=== PATIENT | male | born 1945 | race Caucasian/White ===

== ENCOUNTER 2017-08-11 10:13 | Day surgery (SDC) | payer MEDICARE ==
[2017-08-11] MEDS ORDERED: Sodium Chloride 0.9% 20 ML ONE (10:26)
[2017-08-11] MEDS ORDERED: Acetaminophen 500 MG TAB PO SCH (10:45)
[2017-08-11] MEDS ORDERED: diphenhydrAMINE 25 MG CAP PO SCH (10:45)
[2017-08-11 16:55] VITALS: TEMP 97.9
[2017-08-11 17:33] LABS: Anisocytosis SLIGHT = 6-15 cells (100X) (0-5/hpf); Hematocrit 23.3 % (42.0-52.0); Mean Platelet Volume 6.9 fL (7.4-10.4); Neutrophil 16 % (42-75); Ovalocytes SLIGHT = 2-5 cells (100X) (0-1/hpf); Polychromasia SLIGHT = 2-3 cells (100X) (0-2/hpf); Red Blood Cell (RBC) Count 2.19 mill/uL (4.70-6.10); White Blood Cell (WBC) Count 4.3 thou/uL (4.8-10.8)
[2017-08-11 17:46] VITALS: BP 128/64
== END 2017-08-11 17:05 | disposition home or self-care (01) ==
LOC: ONC/OP 10:13
PROVIDERS: ATTEND Nurse Practitioner Acute Care
PROC: 30233N1 Transfusion of Nonautologous Red Blood Cells into Peripheral Vein, Percutaneous Approach (ICD-10-PCS; principal; 2017-08-11)
DX: D64.9 Anemia, unspecified (principal); D69.6 Thrombocytopenia, unspecified; Z88.1 Allergy status to other antibiotic agents; Z88.8 Allergy status to other drugs, medicaments and biological substances
CPT/HCPCS: 36430; 85025; 86850; 86900; 86901; A4216; J1642; P9016

== ENCOUNTER 2017-09-22 12:24 | Day surgery (SDC) | payer MEDICARE ==
[2017-09-22] MEDS ORDERED: Sodium Chloride 0.9% 20 ML ONE (13:18)
[2017-09-22] MEDS ORDERED: Acetaminophen 500 MG TAB PO SCH (13:30)
[2017-09-22] MEDS ORDERED: diphenhydrAMINE 25 MG CAP PO SCH (13:30)
[2017-09-22 18:35] VITALS: BP 132/63; TEMP 97.9
[2017-09-22 19:13] LABS: Anisocytosis SLIGHT = 6-15 cells (100X) (0-5/hpf); Band 1 % (5-11); Hemoglobin 7.7 g/dL (14.0-18.0); Lymphocytes 72 % (21-51); MDiff Complete? YES; Mean Corpuscular HGB CONC 34.6 g/dL (32.0-36.0); Mean Platelet Volume 6.6 fL (7.4-10.4); Monocytes 6 % (0-10); Neutrophil 21 % (42-75); Ovalocytes SLIGHT = 2-5 cells (100X) (0-1/hpf); PLT Morphology Comment Appears Adequate; Platelet Count 227 thou/uL (130-400); RBC Distribution Width 24.1 % (11.5-14.5); Red Blood Cell (RBC) Count 2.14 mill/uL (4.70-6.10); White Blood Cell (WBC) Count 4.5 thou/uL (4.8-10.8)
== END 2017-09-22 18:38 | disposition home or self-care (01) ==
LOC: ONC/OP 12:24
PROVIDERS: ATTEND Internal Medicine Hematology & Oncology
PROC: 30233N1 Transfusion of Nonautologous Red Blood Cells into Peripheral Vein, Percutaneous Approach (ICD-10-PCS; principal; 2017-09-22)
DX: D64.9 Anemia, unspecified (principal); D69.59 Other secondary thrombocytopenia; Z88.1 Allergy status to other antibiotic agents; Z88.8 Allergy status to other drugs, medicaments and biological substances; Z91.013 Allergy to seafood
CPT/HCPCS: 36430; 80053; 82248; 82728; 83615; 84100; 84550; 85025; 86850; 86900; 86901; A4216; J1642; P9016

== ENCOUNTER 2017-10-06 09:55 | Day surgery (SDC) | payer MEDICARE ==
[2017-10-06] MEDS ORDERED: Acetaminophen 500 MG TAB PO SCH (10:15)
[2017-10-06] MEDS ORDERED: diphenhydrAMINE 25 MG CAP PO SCH (10:15)
[2017-10-06] MEDS ORDERED: Sodium Chloride 0.9% 30 ML ONE (10:17)
[2017-10-06 15:36] VITALS: BP 122/58; TEMP 98.1
[2017-10-06 16:48] LABS: Anisocytosis MODERATE=16-30 cells (100X) (0-5/hpf); Burr Cells SLIGHT = 2-5 cells (100X) (0-1/hpf); Eosinophils 1 % (0-10); Lymphocytes 80 % (21-51); MDiff Complete? YES; Macrocytosis SLIGHT = 6-15 cells (100X) (0-5/hpf); Mean Corpuscular HGB CONC 33.3 g/dL (32.0-36.0); Mean Corpuscular Hemoglobin 34.3 pg (27.0-31.0); Mean Platelet Volume 6.9 fL (7.4-10.4); Monocytes 11 % (0-10); Neutrophil 8 % (42-75); PLT Morphology Comment Appears Adequate; Platelet Count 259 thou/uL (130-400); Polychromasia SLIGHT = 2-3 cells (100X) (0-2/hpf); Red Blood Cell (RBC) Count 2.32 mill/uL (4.70-6.10); White Blood Cell (WBC) Count 5.1 thou/uL (4.8-10.8)
== END 2017-10-06 15:47 | disposition home or self-care (01) ==
LOC: ONC/OP 09:55
PROVIDERS: ATTEND Internal Medicine Hematology & Oncology
PROC: 30233N1 Transfusion of Nonautologous Red Blood Cells into Peripheral Vein, Percutaneous Approach (ICD-10-PCS; principal; 2017-10-06)
DX: D64.9 Anemia, unspecified (principal); D69.6 Thrombocytopenia, unspecified; Z88.1 Allergy status to other antibiotic agents; Z88.8 Allergy status to other drugs, medicaments and biological substances
CPT/HCPCS: 36430; 85025; 86850; 86900; 86901; A4216; J1642; P9016

== ENCOUNTER 2017-10-20 15:17 | Day surgery (SDC) | payer MEDICARE ==
[2017-10-20] MEDS ORDERED: Sodium Chloride 0.9% 20 ML ONE (15:23)
[2017-10-20] MEDS ORDERED: Acetaminophen 500 MG TAB PO SCH (15:45)
[2017-10-20] MEDS ORDERED: diphenhydrAMINE 25 MG CAP PO SCH (15:45)
[2017-10-20 17:33] VITALS: TEMP 97.9
[2017-10-20 19:23] VITALS: BP 137/65
[2017-10-20 19:57] LABS: Anisocytosis SLIGHT = 6-15 cells (100X) (0-5/hpf); Hemoglobin 7.2 g/dL (14.0-18.0); Lymphocytes 92 % (21-51); MDiff Complete? YES; Mean Corpuscular HGB CONC 34.8 g/dL (32.0-36.0); Mean Platelet Volume 6.9 fL (7.4-10.4); Monocytes 1 % (0-10); Neutrophil 7 % (42-75); Ovalocytes SLIGHT = 2-5 cells (100X) (0-1/hpf); PLT Morphology Comment Appears Adequate; Platelet Count 228 thou/uL (130-400); RBC Distribution Width 22.9 % (11.5-14.5); White Blood Cell (WBC) Count 4.7 thou/uL (4.8-10.8)
== END 2017-10-20 19:23 | disposition home or self-care (01) ==
LOC: ONC/OP 15:17
PROVIDERS: ATTEND Internal Medicine Hematology & Oncology
PROC: 30233N1 Transfusion of Nonautologous Red Blood Cells into Peripheral Vein, Percutaneous Approach (ICD-10-PCS; principal; 2017-10-20)
DX: D64.9 Anemia, unspecified (principal); D69.6 Thrombocytopenia, unspecified; Z88.1 Allergy status to other antibiotic agents
CPT/HCPCS: 36430; 80053; 82248; 83615; 84100; 84550; 85025; 86850; 86900; 86901; A4216; J1642; P9016

== ENCOUNTER 2017-11-03 09:56 | Day surgery (SDC) | payer MEDICARE ==
[2017-11-03] MEDS ORDERED: Sodium Chloride 0.9% 30 ML ONE (10:14)
[2017-11-03] MEDS ORDERED: diphenhydrAMINE 25 MG CAP PO SCH (10:15)
[2017-11-03] MEDS ORDERED: Acetaminophen 500 MG TAB PO SCH (10:15)
[2017-11-03 16:01] VITALS: BP 134/61; TEMP 98
[2017-11-03 16:56] LABS: Anisocytosis SLIGHT = 6-15 cells (100X) (0-5/hpf); Hemoglobin 8.5 g/dL (14.0-18.0); Lymphocytes 81 % (21-51); MDiff Complete? YES; Macrocytosis SLIGHT = 6-15 cells (100X) (0-5/hpf); Mean Corpuscular HGB CONC 34.2 g/dL (32.0-36.0); Mean Corpuscular Hemoglobin 35.7 pg (27.0-31.0); Mean Platelet Volume 7.1 fL (7.4-10.4); Monocytes 4 % (0-10); Neutrophil 15 % (42-75); PLT Morphology Comment Appears Adequate; Platelet Count 246 thou/uL (130-400); RBC Distribution Width 22.4 % (11.5-14.5); Red Blood Cell (RBC) Count 2.37 mill/uL (4.70-6.10); White Blood Cell (WBC) Count 4.9 thou/uL (4.8-10.8)
== END 2017-11-03 16:02 | disposition home or self-care (01) ==
LOC: ONC/OP 09:56
PROVIDERS: ATTEND Internal Medicine Hematology & Oncology
PROC: 30233N1 Transfusion of Nonautologous Red Blood Cells into Peripheral Vein, Percutaneous Approach (ICD-10-PCS; principal; 2017-11-03)
DX: D64.9 Anemia, unspecified (principal); D69.59 Other secondary thrombocytopenia; E89.0 Postprocedural hypothyroidism; Z79.82 Long term (current) use of aspirin; Z79.1 Long term (current) use of non-steroidal anti-inflammatories (NSAID); Z79.52 Long term (current) use of systemic steroids; Z79.899 Other long term (current) drug therapy; Z88.1 Allergy status to other antibiotic agents; Z88.8 Allergy status to other drugs, medicaments and biological substances; Z91.013 Allergy to seafood; Z98.890 Other specified postprocedural states; Z87.891 Personal history of nicotine dependence; Z85.850 Personal history of malignant neoplasm of thyroid
CPT/HCPCS: 36430; 85025; 86850; 86900; 86901; A4216; J1642; P9016

== ENCOUNTER 2017-11-24 09:47 | Day surgery (SDC) | payer MEDICARE ==
[2017-11-24] MEDS ORDERED: Sodium Chloride 0.9% 30 ML ONE (10:06)
[2017-11-24] MEDS ORDERED: Acetaminophen 500 MG TAB PO SCH (10:15)
[2017-11-24] MEDS ORDERED: diphenhydrAMINE 25 MG CAP PO SCH (10:15)
[2017-11-24 16:01] VITALS: BP 122/60; TEMP 97.8
[2017-11-24 16:24] LABS: Hemoglobin 8.2 g/dL (14.0-18.0); Mean Corpuscular HGB CONC 34.3 g/dL (32.0-36.0); Mean Corpuscular Hemoglobin 34.6 pg (27.0-31.0); Mean Platelet Volume 6.7 fL (7.4-10.4); Platelet Count 242 thou/uL (130-400); RBC Distribution Width 22.4 % (11.5-14.5); Red Blood Cell (RBC) Count 2.38 mill/uL (4.70-6.10); White Blood Cell (WBC) Count 5.1 thou/uL (4.8-10.8)
[2017-11-24 17:08] LABS: Anisocytosis MODERATE=16-30 cells (100X) (0-5/hpf); Band 1 % (5-11); Elliptocytes SLIGHT = 2-5 cells (100X) (0-1/hpf); Eosinophils 3 % (0-10); Lymphocytes 77 % (21-51); MDiff Complete? YES; Macrocytosis SLIGHT = 6-15 cells (100X) (0-5/hpf); Monocytes 4 % (0-10); Neutrophil 8 % (42-75); Ovalocytes SLIGHT = 2-5 cells (100X) (0-1/hpf); PLT Morphology Comment Appears Adequate; Polychromasia SLIGHT = 2-3 cells (100X) (0-2/hpf); Reactive Lymphocytes 6 % (0-10)
== END 2017-11-24 16:13 | disposition home or self-care (01) ==
LOC: ONC/OP 09:47
PROVIDERS: ATTEND Internal Medicine Medical Oncology
PROC: 30233N1 Transfusion of Nonautologous Red Blood Cells into Peripheral Vein, Percutaneous Approach (ICD-10-PCS; principal; 2017-11-24)
DX: D46.9 Myelodysplastic syndrome, unspecified (principal); D63.8 Anemia in other chronic diseases classified elsewhere; D69.6 Thrombocytopenia, unspecified; Z88.1 Allergy status to other antibiotic agents; Z88.8 Allergy status to other drugs, medicaments and biological substances
CPT/HCPCS: 36430; 85025; 86850; 86900; 86901; A4216; J1642; P9016

== ENCOUNTER 2017-12-15 10:17 | Day surgery (SDC) | payer MEDICARE ==
[2017-12-15] MEDS ORDERED: Sodium Chloride 0.9% 30 ML ONE (10:23)
[2017-12-15] MEDS ORDERED: diphenhydrAMINE 25 MG CAP PO SCH (11:00)
[2017-12-15] MEDS ORDERED: Acetaminophen 500 MG TAB PO SCH (11:00)
[2017-12-15 17:11] VITALS: BP 117/58; TEMP 97.7
[2017-12-15 18:35] LABS: Hemoglobin 7.7 g/dL (14.0-18.0); Mean Corpuscular HGB CONC 34.8 g/dL (32.0-36.0); Mean Corpuscular Hemoglobin 34.2 pg (27.0-31.0); Mean Corpuscular Volume 98.4 fl (80.0-94.0); Mean Platelet Volume 6.6 fL (7.4-10.4); Platelet Count 292 thou/uL (130-400); RBC Distribution Width 20.7 % (11.5-14.5); Red Blood Cell (RBC) Count 2.26 mill/uL (4.70-6.10); White Blood Cell (WBC) Count 4.9 thou/uL (4.8-10.8)
[2017-12-15 18:36] LABS: Anisocytosis SLIGHT = 6-15 cells (100X) (0-5/hpf); Band 2 % (5-11); Lymphocytes 93 % (21-51); MDiff Complete? YES; Neutrophil 5 % (42-75); Ovalocytes SLIGHT = 2-5 cells (100X) (0-1/hpf); PLT Morphology Comment Appears Adequate
== END 2017-12-15 17:12 | disposition home or self-care (01) ==
LOC: ONC/OP 10:17
PROVIDERS: ATTEND Internal Medicine Hematology & Oncology
PROC: 30233N1 Transfusion of Nonautologous Red Blood Cells into Peripheral Vein, Percutaneous Approach (ICD-10-PCS; principal; 2017-12-15)
DX: D64.9 Anemia, unspecified (principal); D69.6 Thrombocytopenia, unspecified; Z88.1 Allergy status to other antibiotic agents; Z88.8 Allergy status to other drugs, medicaments and biological substances
CPT/HCPCS: 36430; 85025; 86850; 86900; 86901; A4216; J1642; P9016

== ENCOUNTER 2017-12-29 09:29 | Day surgery (SDC) | payer MEDICARE ==
[2017-12-29] MEDS ORDERED: Sodium Chloride 0.9% 40 ML ONE (09:45)
[2017-12-29] MEDS ORDERED: Acetaminophen 500 MG TAB PO SCH (09:45)
[2017-12-29] MEDS ORDERED: diphenhydrAMINE 25 MG CAP PO SCH (09:45)
[2017-12-29 16:38] VITALS: BP 112/54; TEMP 97.9
[2017-12-29 16:59] LABS: Anisocytosis SLIGHT = 6-15 cells (100X) (0-5/hpf); Eosinophils 1 % (0-10); Hemoglobin 7.9 g/dL (14.0-18.0); Lymphocytes 91 % (21-51); MDiff Complete? YES; Mean Corpuscular HGB CONC 33.4 g/dL (32.0-36.0); Mean Corpuscular Hemoglobin 33.9 pg (27.0-31.0); Mean Platelet Volume 7.2 fL (7.4-10.4); Monocytes 3 % (0-10); Neutrophil 5 % (42-75); Ovalocytes SLIGHT = 2-5 cells (100X) (0-1/hpf); PLT Morphology Comment Appears Adequate; Platelet Count 258 thou/uL (130-400); RBC Distribution Width 22.4 % (11.5-14.5); Red Blood Cell (RBC) Count 2.32 mill/uL (4.70-6.10); White Blood Cell (WBC) Count 4.5 thou/uL (4.8-10.8)
== END 2017-12-29 16:38 | disposition home or self-care (01) ==
LOC: ONC/OP 09:29
PROVIDERS: ATTEND Internal Medicine Hematology & Oncology
PROC: 30233N1 Transfusion of Nonautologous Red Blood Cells into Peripheral Vein, Percutaneous Approach (ICD-10-PCS; principal; 2017-12-29)
DX: D64.9 Anemia, unspecified (principal); D69.6 Thrombocytopenia, unspecified; Z88.1 Allergy status to other antibiotic agents; Z88.8 Allergy status to other drugs, medicaments and biological substances
CPT/HCPCS: 36430; 85025; 86850; 86900; 86901; A4216; J1642; P9016

== ENCOUNTER 2018-01-12 09:44 | Day surgery (SDC) | payer MEDICARE ==
[2018-01-12] MEDS ORDERED: Sodium Chloride 0.9% 40 ML ONE (10:59)
[2018-01-12] MEDS ORDERED: diphenhydrAMINE 25 MG CAP PO SCH (11:00)
[2018-01-12] MEDS ORDERED: Acetaminophen 500 MG TAB PO SCH (11:00)
[2018-01-12 15:17] LABS: Hemoglobin 7.4 g/dL (14.0-18.0)
[2018-01-12 17:55] VITALS: TEMP 98.5
[2018-01-12 18:53] VITALS: BP 152/68
== END 2018-01-12 19:07 | disposition home or self-care (01) ==
LOC: ONC/OP 09:44
PROVIDERS: ATTEND Internal Medicine Hematology & Oncology
PROC: 30233N1 Transfusion of Nonautologous Red Blood Cells into Peripheral Vein, Percutaneous Approach (ICD-10-PCS; principal; 2018-01-12)
DX: D46.9 Myelodysplastic syndrome, unspecified (principal); D63.0 Anemia in neoplastic disease; D69.6 Thrombocytopenia, unspecified; Z88.1 Allergy status to other antibiotic agents; Z88.8 Allergy status to other drugs, medicaments and biological substances
CPT/HCPCS: 36430; 85014; 85018; 86850; 86900; 86901; A4216; J1642; P9016

== ENCOUNTER 2018-01-26 10:33 | Day surgery (SDC) | payer MEDICARE ==
[2018-01-26] MEDS ORDERED: Sodium Chloride 0.9% 40 ML ONE (10:47)
[2018-01-26] MEDS ORDERED: diphenhydrAMINE 25 MG CAP PO SCH (11:45)
[2018-01-26] MEDS ORDERED: Acetaminophen 500 MG TAB PO SCH (11:45)
[2018-01-26 14:59] LABS: Hemoglobin 7.5 g/dL (14.0-18.0)
[2018-01-26 17:33] VITALS: BP 151/67; TEMP 97.9
== END 2018-01-26 17:34 | disposition home or self-care (01) ==
LOC: ONC/OP 10:33
PROVIDERS: ATTEND Internal Medicine Hematology & Oncology
DX: D64.9 Anemia, unspecified (principal); D69.6 Thrombocytopenia, unspecified
CPT/HCPCS: 36430; 85014; 85018; 86850; 86900; 86901; A4216; J1642; P9016

== ENCOUNTER 2018-02-05 11:02 | Day surgery (SDC) | payer MEDICARE ==
[2018-02-05] MEDS ORDERED: Acetaminophen 500 MG TAB PO SCH (11:30)
[2018-02-05] MEDS ORDERED: diphenhydrAMINE 25 MG CAP PO SCH (11:30)
[2018-02-05] MEDS ORDERED: Sodium Chloride 0.9% 30 ML ONE (11:44)
[2018-02-05 16:59] VITALS: BP 118/58; TEMP 97.7
== END 2018-02-05 17:13 | disposition home or self-care (01) ==
LOC: ONC/OP 11:02
PROVIDERS: ATTEND Internal Medicine Hematology & Oncology
PROC: 30233N1 Transfusion of Nonautologous Red Blood Cells into Peripheral Vein, Percutaneous Approach (ICD-10-PCS; principal; 2018-02-05)
DX: D64.9 Anemia, unspecified (principal); Z88.1 Allergy status to other antibiotic agents; Z88.8 Allergy status to other drugs, medicaments and biological substances; Z91.013 Allergy to seafood; Z79.82 Long term (current) use of aspirin; Z79.899 Other long term (current) drug therapy
CPT/HCPCS: 36430; 85014; 85018; 86850; 86900; 86901; A4216; J1642; P9016

== ENCOUNTER 2018-02-16 09:49 | Day surgery (SDC) | payer MEDICARE ==
[2018-02-16] MEDS ORDERED: Sodium Chloride 0.9% 40 ML ONE (10:11)
[2018-02-16] MEDS ORDERED: Acetaminophen 500 MG TAB PO SCH (10:15)
[2018-02-16] MEDS ORDERED: diphenhydrAMINE 25 MG CAP PO SCH (10:15)
[2018-02-16 13:50] LABS: Hemoglobin 7.3 g/dL (14.0-18.0); Platelet Count 192 thou/uL (130-400)
[2018-02-16 18:59] VITALS: BP 124/58; TEMP 98.1
== END 2018-02-16 16:40 | disposition home or self-care (01) ==
LOC: ONC/OP 09:49
PROVIDERS: ATTEND Internal Medicine Hematology & Oncology
DX: D64.9 Anemia, unspecified (principal); D69.6 Thrombocytopenia, unspecified
CPT/HCPCS: 36430; 85014; 85018; 85049; 86850; 86900; 86901; A4216; J1642; P9016

== ENCOUNTER 2018-03-09 09:35 | Day surgery (SDC) | payer MEDICARE ==
[2018-03-09] MEDS ORDERED: Acetaminophen 500 MG TAB PO SCH (10:00)
[2018-03-09] MEDS ORDERED: diphenhydrAMINE 25 MG CAP PO SCH (10:00)
[2018-03-09] MEDS ORDERED: Sodium Chloride 0.9% 40 ML ONE (10:20)
[2018-03-09 13:32] LABS: Hemoglobin 7.7 g/dL (14.0-18.0)
[2018-03-09 15:53] VITALS: BP 111/55; TEMP 97.9
== END 2018-03-09 16:04 | disposition home or self-care (01) ==
LOC: ONC/OP 09:35
PROVIDERS: ATTEND Internal Medicine Hematology & Oncology
DX: D64.9 Anemia, unspecified (principal); D69.6 Thrombocytopenia, unspecified; Z88.1 Allergy status to other antibiotic agents; Z88.8 Allergy status to other drugs, medicaments and biological substances
CPT/HCPCS: 36430; 85014; 85018; 86850; 86900; 86901; A4216; J1642; P9016

== ENCOUNTER 2018-03-16 09:32 | Day surgery (SDC) | payer MEDICARE ==
[2018-03-16] MEDS ORDERED: Acetaminophen 500 MG TAB PO SCH (09:45)
[2018-03-16] MEDS ORDERED: diphenhydrAMINE 25 MG CAP PO SCH (09:45)
[2018-03-16 14:09] LABS: Hemoglobin 7.4 g/dL (14.0-18.0); Mean Corpuscular HGB CONC 33.9 g/dL (32.0-36.0); Mean Corpuscular Hemoglobin 32.8 pg (27.0-31.0); Mean Corpuscular Volume 96.8 fL (78.0-98.0); Mean Platelet Volume 6.8 fL (7.4-10.4); Platelet Count 227 thou/uL (130-400); RBC Distribution Width 21.7 % (11.5-14.5); Red Blood Cell (RBC) Count 2.25 mill/uL (4.70-6.10); White Blood Cell (WBC) Count 3.7 thou/uL (4.8-10.8)
[2018-03-16 14:31] LABS: Anisocytosis MODERATE=16-30 cells (100X) (0-5/hpf); Band 1 % (5-11); Burr Cells SLIGHT = 2-5 cells (100X) (0-1/hpf); Eosinophils 3 % (0-10); Lymphocytes 74 % (21-51); MDiff Complete? YES; Monocytes 3 % (0-10); Neutrophil 14 % (42-75); Ovalocytes SLIGHT = 2-5 cells (100X) (0-1/hpf); PLT Morphology Comment Appears Adequate; Polychromasia SLIGHT = 2-3 cells (100X) (0-2/hpf); Reactive Lymphocytes 5 % (0-10); Schistocytes SLIGHT = 2-5 cells (100X) (0-1/hpf)
[2018-03-16 19:00] VITALS: BP 117/56; TEMP 98.3
== END 2018-03-16 19:00 | disposition home or self-care (01) ==
LOC: ONC/OP 09:32
PROVIDERS: ATTEND Internal Medicine Medical Oncology
DX: D64.9 Anemia, unspecified (principal); D69.6 Thrombocytopenia, unspecified; Z88.1 Allergy status to other antibiotic agents; Z88.8 Allergy status to other drugs, medicaments and biological substances
CPT/HCPCS: 36430; 82728; 85025; 86850; 86900; 86901; P9016

== ENCOUNTER → 2018-04-06 | Day surgery (SDC) | payer MEDICARE ==
[~2018-04-06] MED LIST: Acetaminophen 500 MG TAB PO SCH; Sodium Chloride 0.9% 20 ML ONE; diphenhydrAMINE 25 MG CAP PO SCH
[2018-04-06 13:11] LABS: Hemoglobin 7.2 g/dL (14.0-18.0)
[2018-04-06 16:15] VITALS: BP 139/65; TEMP 98.5
== END ==
LOC: ONC/OP 09:04
PROVIDERS: ATTEND Internal Medicine Hematology & Oncology
DX: D64.9 Anemia, unspecified (principal); D69.6 Thrombocytopenia, unspecified; Z88.0 Allergy status to penicillin; Z88.8 Allergy status to other drugs, medicaments and biological substances
CPT/HCPCS: 36430; 36591; 85014; 85018; 86850; 86900; 86901; A4216; J1642; P9016

== ENCOUNTER 2018-05-04 09:24 | Day surgery (SDC) | payer MEDICARE ==
[2018-05-04] MEDS ORDERED: Sodium Chloride 0.9% 20 ML ONE (09:35)
[2018-05-04] MEDS ORDERED: diphenhydrAMINE 25 MG CAP PO SCH (09:45)
[2018-05-04] MEDS ORDERED: Acetaminophen 500 MG TAB PO SCH (09:45)
[2018-05-04 13:30] LABS: Hemoglobin 7.8 g/dL (14.0-18.0)
[2018-05-04 15:29] VITALS: BP 133/61; TEMP 97.8
== END 2018-05-04 15:31 | disposition home or self-care (01) ==
LOC: ONC/OP 09:24
PROVIDERS: ATTEND Internal Medicine Hematology & Oncology
PROC: 30233N1 Transfusion of Nonautologous Red Blood Cells into Peripheral Vein, Percutaneous Approach (ICD-10-PCS; principal; 2018-05-04)
DX: D64.9 Anemia, unspecified (principal); D69.6 Thrombocytopenia, unspecified; Z79.82 Long term (current) use of aspirin; Z79.899 Other long term (current) drug therapy; Z88.1 Allergy status to other antibiotic agents; Z88.8 Allergy status to other drugs, medicaments and biological substances; Z91.013 Allergy to seafood
CPT/HCPCS: 36430; 36591; 85014; 85018; 86850; 86900; 86901; A4216; J1642; P9016

== ENCOUNTER 2018-06-01 10:00 | Day surgery (SDC) | payer MEDICARE ==
[2018-06-01] MEDS ORDERED: diphenhydrAMINE 25 MG CAP PO SCH (10:15)
[2018-06-01] MEDS ORDERED: Acetaminophen 500 MG TAB PO SCH (10:15)
[2018-06-01 13:39] LABS: Hemoglobin 6.8 g/dL (14.0-18.0)
[2018-06-01 15:54] VITALS: BP 115/88; TEMP 98
== END 2018-06-01 15:56 | disposition home or self-care (01) ==
LOC: ONC/OP 10:00
PROVIDERS: ATTEND Internal Medicine Medical Oncology
PROC: 30233N1 Transfusion of Nonautologous Red Blood Cells into Peripheral Vein, Percutaneous Approach (ICD-10-PCS; principal; 2018-06-01)
DX: D64.9 Anemia, unspecified (principal); D69.6 Thrombocytopenia, unspecified; Z79.82 Long term (current) use of aspirin; Z79.899 Other long term (current) drug therapy; Z88.1 Allergy status to other antibiotic agents; Z88.8 Allergy status to other drugs, medicaments and biological substances; Z91.013 Allergy to seafood
CPT/HCPCS: 36430; 85014; 85018; 86850; 86900; 86901; P9016

== ENCOUNTER 2018-06-29 09:46 | Day surgery (SDC) | payer MEDICARE ==
[2018-06-29] MEDS ORDERED: Acetaminophen 500 MG TAB PO SCH (10:00)
[2018-06-29] MEDS ORDERED: diphenhydrAMINE 25 MG CAP PO SCH (10:00)
[2018-06-29] MEDS ORDERED: Sodium Chloride 0.9% 20 ML ONE (10:01)
[2018-06-29 13:50] VITALS: TEMP 98.1
[2018-06-29 13:58] LABS: Hemoglobin 6.9 g/dL (14.0-18.0)
[2018-06-29 16:34] VITALS: BP 113/57
== END 2018-06-29 16:34 | disposition home or self-care (01) ==
LOC: ONC/OP 09:46
PROVIDERS: ATTEND Internal Medicine Hematology & Oncology
PROC: 30233N1 Transfusion of Nonautologous Red Blood Cells into Peripheral Vein, Percutaneous Approach (ICD-10-PCS; principal; 2018-06-29)
DX: D64.9 Anemia, unspecified (principal); D69.6 Thrombocytopenia, unspecified; Z79.82 Long term (current) use of aspirin; Z79.899 Other long term (current) drug therapy; Z88.1 Allergy status to other antibiotic agents; Z91.013 Allergy to seafood
CPT/HCPCS: 36430; 85014; 85018; 86850; 86900; 86901; J1642; P9016

== ENCOUNTER 2018-08-03 09:18 | Day surgery (SDC) | payer MEDICARE ==
[2018-08-03] MEDS ORDERED: Sodium Chloride 0.9% 20 ML ONE (09:54)
[2018-08-03] MEDS ORDERED: diphenhydrAMINE 25 MG CAP PO SCH (10:15)
[2018-08-03] MEDS ORDERED: Acetaminophen 500 MG TAB PO SCH (10:15)
[2018-08-03 13:28] LABS: Hemoglobin 7.3 g/dL (14.0-18.0)
[2018-08-03 16:18] VITALS: BP 146/63; TEMP 97.7
== END 2018-08-03 16:30 | disposition home or self-care (01) ==
LOC: ONC/OP 09:18
PROVIDERS: ATTEND Internal Medicine Hematology & Oncology
PROC: 30233N1 Transfusion of Nonautologous Red Blood Cells into Peripheral Vein, Percutaneous Approach (ICD-10-PCS; principal; 2018-08-03)
DX: D64.9 Anemia, unspecified (principal); D69.6 Thrombocytopenia, unspecified; Z79.82 Long term (current) use of aspirin; Z79.899 Other long term (current) drug therapy; Z88.1 Allergy status to other antibiotic agents; Z88.8 Allergy status to other drugs, medicaments and biological substances; Z91.013 Allergy to seafood
CPT/HCPCS: 36430; 85014; 85018; 86850; 86900; 86901; J1642; P9016

== ENCOUNTER 2018-10-26 09:56 | Day surgery (SDC) | payer MEDICARE ==
[2018-10-26] MEDS ORDERED: Acetaminophen 500 MG TAB PO SCH (10:30)
[2018-10-26] MEDS ORDERED: diphenhydrAMINE 25 MG CAP PO SCH (10:30)
[2018-10-26] MEDS ORDERED: Sodium Chloride 0.9% 40 ML ONE (10:51)
[2018-10-26 14:13] LABS: Hemoglobin 7.1 g/dL (14.0-18.0)
[2018-10-26 16:44] VITALS: BP 125/58; TEMP 97.7
== END 2018-10-26 16:54 | disposition home or self-care (01) ==
LOC: ONC/OP 09:56
PROVIDERS: ATTEND Internal Medicine Hematology & Oncology
PROC: 30233N1 Transfusion of Nonautologous Red Blood Cells into Peripheral Vein, Percutaneous Approach (ICD-10-PCS; principal; 2018-10-26)
DX: D64.9 Anemia, unspecified (principal); D69.6 Thrombocytopenia, unspecified; Z88.1 Allergy status to other antibiotic agents; Z88.8 Allergy status to other drugs, medicaments and biological substances; Z91.013 Allergy to seafood; Z79.52 Long term (current) use of systemic steroids; Z79.82 Long term (current) use of aspirin; Z79.899 Other long term (current) drug therapy
CPT/HCPCS: 36430; 85014; 85018; 86850; 86900; 86901; J1642; P9016; Q0163

== ENCOUNTER 2022-11-06 10:23 | Day surgery (SDC) | payer MEDICARE ==
[2022-11-06] MEDS ORDERED: diphenhydrAMINE 25 MG CAP PO SCH (10:45)
[2022-11-06] MEDS ORDERED: Acetaminophen 500 MG TAB PO SCH (10:45)
[2022-11-06] MEDS ORDERED: diphenhydrAMINE 25 MG CAP ONE (11:36)
[2022-11-06] MEDS ORDERED: Acetaminophen 500 MG TAB ONE (11:36)
[2022-11-06 16:00] VITALS: BP 161/70; TEMP 97.8
== END 2022-11-06 16:17 | disposition home or self-care (01) ==
LOC: ONC/OP 10:23
PROVIDERS: ATTEND Internal Medicine Hematology & Oncology
PROC: 30233N1 Transfusion of Nonautologous Red Blood Cells into Peripheral Vein, Percutaneous Approach (ICD-10-PCS; principal; 2022-11-06)
DX: D64.9 Anemia, unspecified (principal); D69.6 Thrombocytopenia, unspecified; Z88.1 Allergy status to other antibiotic agents; Z88.8 Allergy status to other drugs, medicaments and biological substances
CPT/HCPCS: 36430; 86850; 86900; 86901; P9016

== ENCOUNTER 2022-11-25 10:21 | Day surgery (SDC) | payer MEDICARE ==
[2022-11-25] MEDS ORDERED: Acetaminophen 500 MG TAB PO SCH (10:45)
[2022-11-25] MEDS ORDERED: diphenhydrAMINE 25 MG CAP PO SCH (10:45)
[2022-11-25] MEDS ORDERED: diphenhydrAMINE 25 MG CAP ONE (11:08)
[2022-11-25] MEDS ORDERED: Acetaminophen 500 MG TAB ONE (11:08)
[2022-11-25 15:32] VITALS: BP 163/68; TEMP 97.6
== END 2022-11-25 14:15 | disposition home or self-care (01) ==
LOC: ONC/OP 10:21
PROVIDERS: ATTEND Internal Medicine Hematology & Oncology
PROC: 30233N1 Transfusion of Nonautologous Red Blood Cells into Peripheral Vein, Percutaneous Approach (ICD-10-PCS; principal; 2022-11-25)
DX: D64.9 Anemia, unspecified (principal); D69.6 Thrombocytopenia, unspecified; Z88.1 Allergy status to other antibiotic agents; Z88.8 Allergy status to other drugs, medicaments and biological substances; Z91.013 Allergy to seafood
CPT/HCPCS: 36430; 86850; 86900; 86901; P9016

== ENCOUNTER 2022-12-09 09:48 | Day surgery (SDC) | payer MEDICARE ==
[2022-12-09] MEDS ORDERED: diphenhydrAMINE 25 MG CAP PO SCH (10:15)
[2022-12-09] MEDS ORDERED: Acetaminophen 500 MG TAB PO SCH (10:15)
[2022-12-09] MEDS ORDERED: Acetaminophen 500 MG TAB ONE (10:42)
[2022-12-09] MEDS ORDERED: FLU VACC QS2022-23(65YR UP)/PF 240 MCG/0.7 ML SYRINGE IM ONE (11:45)
[2022-12-09 16:40] VITALS: BP 172/78; TEMP 97.9
== END 2022-12-09 16:37 | disposition home or self-care (01) ==
LOC: ONC/OP 09:48
PROVIDERS: ATTEND Internal Medicine Hematology & Oncology
PROC: 30233N1 Transfusion of Nonautologous Red Blood Cells into Peripheral Vein, Percutaneous Approach (ICD-10-PCS; principal; 2022-12-09)
DX: D64.9 Anemia, unspecified (principal); D69.6 Thrombocytopenia, unspecified; Z88.1 Allergy status to other antibiotic agents; Z88.8 Allergy status to other drugs, medicaments and biological substances
CPT/HCPCS: 36430; 86850; 86900; 86901; 86920; P9016; J1642

== ENCOUNTER 2022-12-30 09:50 | Day surgery (SDC) | payer MEDICARE ==
[2022-12-30] MEDS ORDERED: Acetaminophen 500 MG TAB PO SCH (10:15)
[2022-12-30] MEDS ORDERED: diphenhydrAMINE 25 MG CAP PO SCH (10:15)
[2022-12-30] MEDS ORDERED: diphenhydrAMINE 25 MG CAP ONE (10:37)
[2022-12-30] MEDS ORDERED: Acetaminophen 500 MG TAB ONE (10:37)
[2022-12-30 11:41] VITALS: TEMP 97.7
[2022-12-30 13:33] VITALS: BP 132/60
== END 2022-12-30 13:29 | disposition home or self-care (01) ==
LOC: ONC/OP 09:50
PROVIDERS: ATTEND Internal Medicine Hematology & Oncology
PROC: 30233N1 Transfusion of Nonautologous Red Blood Cells into Peripheral Vein, Percutaneous Approach (ICD-10-PCS; principal; 2022-12-30)
DX: C93.10 Chronic myelomonocytic leukemia not having achieved remission (principal); D63.0 Anemia in neoplastic disease; D69.3 Immune thrombocytopenic purpura; Z88.1 Allergy status to other antibiotic agents; Z88.8 Allergy status to other drugs, medicaments and biological substances; Z91.013 Allergy to seafood
CPT/HCPCS: 36430; 86850; 86900; 86901; 86920; P9016; J1642

== ENCOUNTER 2023-01-13 09:33 | Day surgery (SDC) | payer MEDICARE ==
[2023-01-13] MEDS ORDERED: Acetaminophen 500 MG TAB PO SCH (09:45)
[2023-01-13] MEDS ORDERED: diphenhydrAMINE 25 MG CAP PO SCH (09:45)
[2023-01-13] MEDS ORDERED: diphenhydrAMINE 25 MG CAP ONE (10:26)
[2023-01-13] MEDS ORDERED: Acetaminophen 500 MG TAB ONE (10:26)
[2023-01-13 16:31] VITALS: BP 150/65; TEMP 97.7
== END 2023-01-13 15:50 | disposition home or self-care (01) ==
LOC: ONC/OP 09:33
PROVIDERS: ATTEND Internal Medicine Hematology & Oncology
PROC: 30233N1 Transfusion of Nonautologous Red Blood Cells into Peripheral Vein, Percutaneous Approach (ICD-10-PCS; principal; 2023-01-13)
DX: D64.9 Anemia, unspecified (principal); D69.6 Thrombocytopenia, unspecified; Z88.1 Allergy status to other antibiotic agents; Z88.8 Allergy status to other drugs, medicaments and biological substances; Z91.013 Allergy to seafood
CPT/HCPCS: 36430; 86850; 86900; 86901; 86920; P9016; J1642

== ENCOUNTER 2023-01-14 08:47 | Day surgery (SDC) | payer MEDICARE ==
[2023-01-14 08:57] LABS: INR-International Normal Ratio 1.1; Prothrombin Time 14.3 sec (12.0-14.7)
[2023-01-14 08:58] LABS: PTT 34.8 sec (22.9-36.1)
[2023-01-14 09:25] VITALS: BP 137/79; TEMP 98.4
[2023-01-14] MEDS ORDERED: Iopamidol 370 76% 100 ML VIAL ONE (10:06)
[2023-01-25 15:52] LABS: Ref Lab Test Ordered TCR BETA & GAMMA; Reference Lab Name NEOGENOMICS
== END 2023-01-14 11:56 | disposition home or self-care (01) ==
LOC: CT 08:47
PROVIDERS: ATTEND Internal Medicine Hematology & Oncology
PROC: 079T3ZX Drainage of Bone Marrow, Percutaneous Approach, Diagnostic (ICD-10-PCS; principal; 2023-01-14)
DX: D61.818 Other pancytopenia (principal); R16.1 Splenomegaly, not elsewhere classified; K83.8 Other specified diseases of biliary tract; K80.20 Calculus of gallbladder without cholecystitis without obstruction; N20.0 Calculus of kidney; N28.1 Cyst of kidney, acquired; N40.0 Benign prostatic hyperplasia without lower urinary tract symptoms; Z88.1 Allergy status to other antibiotic agents; Z88.8 Allergy status to other drugs, medicaments and biological substances; Z91.013 Allergy to seafood
CPT/HCPCS: 20225; 74177; 77002; 82565; 85097; 85610; 85730; 88184; 88185; 88237; 88264; 88280; 88305; 88311; 88313; 88341; 88342; Q9967

== ENCOUNTER 2023-03-03 09:47 | Day surgery (SDC) | payer MEDICARE ==
[2023-03-03] MEDS ORDERED: diphenhydrAMINE 25 MG CAP PO SCH (10:15)
[2023-03-03] MEDS ORDERED: Acetaminophen 500 MG TAB PO SCH (10:15)
[2023-03-03] MEDS ORDERED: Acetaminophen 500 MG TAB ONE (10:59)
[2023-03-03 13:47] VITALS: BP 148/72; TEMP 98.1
== END 2023-03-03 13:49 | disposition home or self-care (01) ==
LOC: ONC/OP 09:47
PROVIDERS: ATTEND Internal Medicine Hematology & Oncology
DX: D64.9 Anemia, unspecified (principal); D69.6 Thrombocytopenia, unspecified
CPT/HCPCS: 36430; 86850; 86900; 86901; 86920; P9016; 36415; 80053; 82248; 83615; 84100; 84550; J1642

== ENCOUNTER 2023-04-14 09:29 | Day surgery (SDC) | payer MEDICARE ==
[2023-04-14] MEDS ORDERED: diphenhydrAMINE 25 MG CAP PO SCH (10:00)
[2023-04-14] MEDS ORDERED: Acetaminophen 500 MG TAB PO SCH (10:00)
[2023-04-14] MEDS ORDERED: Acetaminophen 500 MG TAB ONE (10:12)
[2023-04-14 16:18] VITALS: BP 154/66; TEMP 97.9
== END 2023-04-14 16:10 | disposition home or self-care (01) ==
LOC: ONC/OP 09:29
PROVIDERS: ATTEND Internal Medicine Hematology & Oncology
DX: D64.9 Anemia, unspecified (principal); D69.6 Thrombocytopenia, unspecified
CPT/HCPCS: 36430; 86850; 86900; 86901; 86920; P9016; 80053; 82248; 83615; 84100; 84550; J1642

== ENCOUNTER 2023-04-21 09:53 | Day surgery (SDC) | payer MEDICARE ==
[2023-04-21] MEDS ORDERED: Acetaminophen 500 MG TAB ONE (10:23)
[2023-04-21] MEDS ORDERED: diphenhydrAMINE 25 MG CAP ONE (10:23)
[2023-04-21] MEDS ORDERED: Acetaminophen 500 MG TAB PO SCH (10:45)
[2023-04-21] MEDS ORDERED: diphenhydrAMINE 25 MG CAP PO SCH (10:45)
[2023-04-21 16:14] VITALS: BP 123/58; TEMP 97.9
== END 2023-04-21 16:28 | disposition home or self-care (01) ==
LOC: ONC/OP 09:53
PROVIDERS: ATTEND Internal Medicine Hematology & Oncology
DX: D64.9 Anemia, unspecified (principal); Z88.1 Allergy status to other antibiotic agents; Z88.8 Allergy status to other drugs, medicaments and biological substances
CPT/HCPCS: 36430; 86850; 86900; 86901; 86920; P9016; J1642

== ENCOUNTER 2023-05-05 09:42 | Day surgery (SDC) | payer MEDICARE ==
[2023-05-05] MEDS ORDERED: diphenhydrAMINE 25 MG CAP PO SCH (10:15)
[2023-05-05] MEDS ORDERED: Acetaminophen 500 MG TAB PO SCH (10:15)
[2023-05-05] MEDS ORDERED: Acetaminophen 500 MG TAB ONE (10:21)
[2023-05-05] MEDS ORDERED: diphenhydrAMINE 25 MG CAP ONE (10:21)
[2023-05-05 13:29] VITALS: BP 128/61; TEMP 98
== END 2023-05-05 13:37 | disposition home or self-care (01) ==
LOC: ONC/OP 09:42
PROVIDERS: ATTEND Internal Medicine Hematology & Oncology
DX: D64.9 Anemia, unspecified (principal); Z88.1 Allergy status to other antibiotic agents; Z88.8 Allergy status to other drugs, medicaments and biological substances
CPT/HCPCS: 36430; 86850; 86900; 86901; 86920; P9016; J1642

== ENCOUNTER 2023-06-30 10:06 | Day surgery (SDC) | payer MEDICARE ==
[2023-06-30] MEDS ORDERED: Acetaminophen 500 MG TAB PO SCH (10:30)
[2023-06-30] MEDS ORDERED: diphenhydrAMINE 25 MG CAP PO SCH (10:30)
[2023-06-30] MEDS ORDERED: Acetaminophen 500 MG TAB ONE (10:55)
[2023-06-30 13:41] VITALS: BP 134/68; TEMP 97.8
[2023-06-30] MEDS ORDERED: FLU VACC QS2023(65UP)/MF59C/PF 60 MCG/0.5 ML SYRINGE IM ONE (15:00)
== END 2023-06-30 13:43 | disposition home or self-care (01) ==
LOC: ONC/OP 10:06
PROVIDERS: ATTEND Internal Medicine Hematology & Oncology
DX: D64.9 Anemia, unspecified (principal); Z88.1 Allergy status to other antibiotic agents; Z88.8 Allergy status to other drugs, medicaments and biological substances
CPT/HCPCS: 36430; 86850; 86900; 86901; 86920; P9016; J1642

== ENCOUNTER 2023-07-07 09:58 | Day surgery (SDC) | payer MEDICARE ==
[2023-07-07] MEDS ORDERED: diphenhydrAMINE 25 MG CAP PO SCH (10:15)
[2023-07-07] MEDS ORDERED: Acetaminophen 500 MG TAB PO SCH (10:15)
[2023-07-07] MEDS ORDERED: Acetaminophen 500 MG TAB ONE (10:50)
[2023-07-07] MEDS ORDERED: diphenhydrAMINE 25 MG CAP ONE (10:51)
[2023-07-07 13:41] VITALS: BP 158/74; TEMP 97.4
[2023-07-07] MEDS ORDERED: FLU VACC QS2023(65UP)/MF59C/PF 60 MCG/0.5 ML SYRINGE IM ONE (16:00)
== END 2023-07-07 13:41 | disposition home or self-care (01) ==
LOC: ONC/OP 09:58
PROVIDERS: ATTEND Internal Medicine Hematology & Oncology
DX: D64.9 Anemia, unspecified (principal); D69.6 Thrombocytopenia, unspecified
CPT/HCPCS: 36430; 86850; 86900; 86901; 86920; P9016; 36415; 80053; J1642

== ENCOUNTER 2023-07-14 10:04 | Day surgery (SDC) | payer MEDICARE ==
[2023-07-14] MEDS ORDERED: Acetaminophen 500 MG TAB ONE (10:40)
[2023-07-14] MEDS ORDERED: diphenhydrAMINE 25 MG CAP ONE (10:40)
[2023-07-14 11:36] VITALS: TEMP 97.7
[2023-07-14] MEDS ORDERED: Acetaminophen 500 MG TAB PO SCH (12:15)
[2023-07-14] MEDS ORDERED: diphenhydrAMINE 25 MG CAP PO SCH (12:15)
[2023-07-14 14:09] VITALS: BP 153/69
== END 2023-07-14 14:10 | disposition home or self-care (01) ==
LOC: ONC/OP 10:04
PROVIDERS: ATTEND Internal Medicine Hematology & Oncology
DX: D64.9 Anemia, unspecified (principal); D69.59 Other secondary thrombocytopenia; Z88.1 Allergy status to other antibiotic agents
CPT/HCPCS: 36430; 86850; 86900; 86901; 86920; P9016; J1642

== ENCOUNTER 2023-07-21 09:39 | Day surgery (SDC) | payer MEDICARE ==
[2023-07-21] MEDS ORDERED: Acetaminophen 500 MG TAB PO SCH (10:00)
[2023-07-21] MEDS ORDERED: diphenhydrAMINE 25 MG CAP PO SCH (10:00)
[2023-07-21] MEDS ORDERED: diphenhydrAMINE 25 MG CAP ONE (10:17)
[2023-07-21] MEDS ORDERED: Acetaminophen 500 MG TAB ONE (10:17)
[2023-07-21 10:35] VITALS: TEMP 97.7
[2023-07-21 14:27] VITALS: BP 109/55
== END 2023-07-21 13:47 | disposition home or self-care (01) ==
LOC: ONC/OP 09:39
PROVIDERS: ATTEND Internal Medicine Hematology & Oncology
DX: D64.9 Anemia, unspecified (principal)
CPT/HCPCS: 36430; 86850; 86900; 86901; 86920; P9016; J1642

== ENCOUNTER 2023-07-28 09:50 | Day surgery (SDC) | payer MEDICARE ==
[2023-07-28] MEDS ORDERED: diphenhydrAMINE 25 MG CAP PO SCH (10:15)
[2023-07-28] MEDS ORDERED: Acetaminophen 500 MG TAB PO SCH (10:15)
[2023-07-28] MEDS ORDERED: Acetaminophen 500 MG TAB ONE (10:20)
[2023-07-28 14:42] VITALS: BP 148/67; TEMP 97.8
== END 2023-07-28 14:35 | disposition home or self-care (01) ==
LOC: ONC/OP 09:50
PROVIDERS: ATTEND Internal Medicine Hematology & Oncology
DX: D64.9 Anemia, unspecified (principal); D69.59 Other secondary thrombocytopenia
CPT/HCPCS: 36430; 86850; 86900; 86901; 86920; P9016; J1642

== ENCOUNTER 2023-08-04 09:50 | Day surgery (SDC) | payer MEDICARE ==
[2023-08-04] MEDS ORDERED: Acetaminophen 500 MG TAB PO SCH (10:15)
[2023-08-04] MEDS ORDERED: diphenhydrAMINE 25 MG CAP PO SCH (10:15)
[2023-08-04] MEDS ORDERED: Acetaminophen 500 MG TAB ONE (10:21)
[2023-08-04] MEDS ORDERED: diphenhydrAMINE 25 MG CAP ONE (10:21)
[2023-08-04 14:04] VITALS: BP 173/76; TEMP 97.7
== END 2023-08-04 14:10 | disposition home or self-care (01) ==
LOC: ONC/OP 09:50
PROVIDERS: ATTEND Internal Medicine Hematology & Oncology
DX: D64.9 Anemia, unspecified (principal); D69.59 Other secondary thrombocytopenia
CPT/HCPCS: 36430; 86850; 86900; 86901; 86920; P9016; 80053; J1642

== ENCOUNTER 2023-08-18 09:49 | Day surgery (SDC) | payer MEDICARE ==
[2023-08-18] MEDS ORDERED: Acetaminophen 500 MG TAB PO SCH (10:15)
[2023-08-18] MEDS ORDERED: diphenhydrAMINE 25 MG CAP PO SCH (10:15)
[2023-08-18] MEDS ORDERED: Acetaminophen 500 MG TAB ONE (11:03)
[2023-08-18 14:23] VITALS: BP 176/80; TEMP 98.4
== END 2023-08-18 13:32 | disposition home or self-care (01) ==
LOC: ONC/OP 09:49
PROVIDERS: ATTEND Internal Medicine Hematology & Oncology
DX: D69.59 Other secondary thrombocytopenia (principal)
CPT/HCPCS: 36430; 86850; 86900; 86901; 86920; P9016; J1642

== ENCOUNTER → 2023-08-20 | Day surgery (SDC) | payer MEDICARE ==
[2023-08-20 08:44] LABS: #Monocytes 0.1 thou/uL (0.11-0.59); #Neutrophils 1.5 thou/uL (1.40-6.50); %Basophils 0.5 % (0.0-1.0); %Eosinophils 1.4 % (0.0-10.0); %Lymphocytes 21.9 % (21.0-51.0); %Monocytes 6.7 % (0.0-10.0); %Neutrophils 69.5 % (42.0-75.0); Hematocrit 25.1 % (42.0-52.0); Hemoglobin 8.1 g/dL (14.0-18.0); Mean Corpuscular HGB CONC 32.3 g/dL (32.0-36.0); Mean Corpuscular Volume 99.2 fl (78.0-98.0); Mean Platelet Volume 9.5 fL (7.4-10.4); Platelet Count 148 10x3/uL (130-400); RBC Distribution Width 24.6 % (11.5-14.5); Red Blood Cell (RBC) Count 2.53 mill/uL (4.70-6.10); White Blood Cell (WBC) Count 2.1 10x3/uL (4.8-10.8)
[2023-08-20 08:58] LABS: INR-International Normal Ratio 1.1; Prothrombin Time 14.3 sec (12.0-14.7)
[2023-08-20 08:59] LABS: PTT 36.6 sec (22.9-36.1)
[2023-08-20 09:41] LABS: CellaVision Operator ID LAB.GE; Ovalocytes SLIGHT = 2-5 cells HPF (0-1); Platelet Adequacy Comment Platelets Normal; Polychromasia SLIGHT = 2-3 cells HPF (0-2)
== END ==
LOC: CT 08:15
PROVIDERS: ATTEND Internal Medicine Hematology & Oncology
DX: D46.0 Refractory anemia without ring sideroblasts, so stated (principal); D50.9 Iron deficiency anemia, unspecified; E03.9 Hypothyroidism, unspecified; I25.10 Atherosclerotic heart disease of native coronary artery without angina pectoris; I10 Essential (primary) hypertension; I48.91 Unspecified atrial fibrillation; Z88.1 Allergy status to other antibiotic agents; Z88.8 Allergy status to other drugs, medicaments and biological substances; Z79.890 Hormone replacement therapy; Z79.899 Other long term (current) drug therapy
CPT/HCPCS: 20225; 77012; 85025; 85610; 85730; 88184; 88237; 88264; 88280

== ENCOUNTER 2024-03-08 10:30 | Day surgery (SDC) | payer MEDICARE ==
[2024-03-08] MEDS ORDERED: Acetaminophen 500 MG TAB PO SCH (11:00)
[2024-03-08] MEDS ORDERED: diphenhydrAMINE 25 MG CAP ONE (11:40)
[2024-03-08] MEDS: diphenhydrAMINE 25 MG CAP PO SCH (11:41)
[2024-03-08 14:54] VITALS: BP 163/72; TEMP 97.5
== END 2024-03-08 14:56 | disposition home or self-care (01) ==
LOC: ONC/OP 10:30
PROVIDERS: ATTEND Internal Medicine Hematology & Oncology
DX: D64.9 Anemia, unspecified (principal); D69.6 Thrombocytopenia, unspecified; Z88.1 Allergy status to other antibiotic agents; Z88.8 Allergy status to other drugs, medicaments and biological substances
CPT/HCPCS: 36430; 86850; 86900; 86901; 86920; J1642; P9016

== ENCOUNTER 2024-03-15 10:18 | Day surgery (SDC) | payer MEDICARE ==
[2024-03-15 13:37] VITALS: BP 126/65; TEMP 97.6
== END 2024-03-15 13:42 | disposition home or self-care (01) ==
LOC: ONC/OP 10:18
PROVIDERS: ATTEND Internal Medicine Hematology & Oncology
DX: D64.9 Anemia, unspecified (principal); D69.6 Thrombocytopenia, unspecified
CPT/HCPCS: 36430; 86850; 86900; 86901; 86920; J1642; P9016

== ENCOUNTER → 2024-03-30 | Day surgery (SDC) | payer MEDICARE ==
[~2024-03-30] MED LIST changes: +Acetaminophen 500 MG TAB ONE; -Acetaminophen 500 MG TAB PO SCH; -Sodium Chloride 0.9% 20 ML ONE; +diphenhydrAMINE 25 MG CAP ONE; -diphenhydrAMINE 25 MG CAP PO SCH
[2024-03-30] MEDS: diphenhydrAMINE 25 MG CAP PO SCH (11:47)
[2024-03-30] MEDS: Acetaminophen 500 MG TAB PO SCH (11:47)
[2024-03-30 15:22] VITALS: BP 129/60; TEMP 97.6
== END ==
LOC: ONC/OP 11:07
PROVIDERS: ATTEND Internal Medicine Hematology & Oncology
DX: D64.9 Anemia, unspecified (principal); D69.6 Thrombocytopenia, unspecified
CPT/HCPCS: 36430; 86850; 86900; 86901; 86920; J1642; P9016

== ENCOUNTER 2024-04-06 08:08 | Day surgery (SDC) | payer MEDICARE ==
[2024-04-06 08:39] LABS: #Basophils 0.03 10x3/uL (0.0-0.2); %Basophils 0.8 % (0.0-1.0); %Eosinophils 1.9 % (0.0-10.0); %Lymphocytes 41.4 % (21.0-51.0); %Monocytes 5.2 % (0.0-10.0); %Neutrophils 49.9 % (42.0-75.0); Hematocrit 25.1 % (42.0-52.0); Hemoglobin 8.1 g/dL (14.0-18.0); Mean Corpuscular HGB CONC 32.3 g/dL (32.0-36.0); Mean Corpuscular Hemoglobin 35.8 pg (27.0-31.0); Mean Corpuscular Volume 111.1 fL (78.0-98.0); Mean Platelet Volume 9.4 fL (7.4-10.4); Platelet Count 210 10x3/uL (130-400); RBC Distribution Width 22.5 % (11.5-14.5); Red Blood Cell (RBC) Count 2.26 mill/uL (4.70-6.10)
[2024-04-06 08:49] LABS: INR-International Normal Ratio 1.1; Prothrombin Time 14.2 sec (12.0-14.7)
[2024-04-06 08:57] LABS: Macrocytosis SLIGHT = 6-15 cells HPF (0-5); Platelet Adequacy Comment Platelets Normal
== END 2024-04-06 12:30 | disposition home or self-care (01) ==
LOC: CT 08:08
PROVIDERS: ATTEND Internal Medicine Hematology & Oncology
PROC: 07DR3ZX Extraction of Iliac Bone Marrow, Percutaneous Approach, Diagnostic (ICD-10-PCS; principal; 2024-04-06)
DX: D46.0 Refractory anemia without ring sideroblasts, so stated (principal); D50.9 Iron deficiency anemia, unspecified; Z79.899 Other long term (current) drug therapy; Z88.8 Allergy status to other drugs, medicaments and biological substances; Z88.1 Allergy status to other antibiotic agents
CPT/HCPCS: 36415; 38222; 77012; 85025; 85097; 85610; 85730; 88184; 88185; 88237; 88264; 88280; 88305; 88311; 88313; 88341; 88342; J2250; J3010

== ENCOUNTER 2024-04-12 10:34 | Day surgery (SDC) | payer MEDICARE ==
[2024-04-12] MEDS ORDERED: diphenhydrAMINE 25 MG CAP ONE (11:35)
[2024-04-12] MEDS ORDERED: Acetaminophen 500 MG TAB ONE (11:35)
[2024-04-12] MEDS: Acetaminophen 500 MG TAB PO SCH (11:36)
[2024-04-12] MEDS: diphenhydrAMINE 25 MG CAP PO SCH (11:36)
[2024-04-12 15:19] VITALS: BP 157/74; TEMP 97.9
== END 2024-04-12 15:00 | disposition home or self-care (01) ==
LOC: ONC/OP 10:34
PROVIDERS: ATTEND Internal Medicine Hematology & Oncology
DX: D64.9 Anemia, unspecified (principal); D69.6 Thrombocytopenia, unspecified; Z88.8 Allergy status to other drugs, medicaments and biological substances
CPT/HCPCS: 36430; 86850; 86900; 86901; 86920; J1642; P9016

== ENCOUNTER 2024-05-04 07:44 | Day surgery (SDC) | payer MEDICARE ==
[2024-05-04] MEDS ORDERED: Acetaminophen 500 MG TAB ONE (08:26)
[2024-05-04] MEDS ORDERED: diphenhydrAMINE 25 MG CAP ONE (08:27)
[2024-05-04] MEDS: diphenhydrAMINE 25 MG CAP PO SCH (08:28)
[2024-05-04] MEDS: Acetaminophen 500 MG TAB PO SCH (08:28)
[2024-05-04 10:51] VITALS: BP 169/79; TEMP 97.8
== END 2024-05-04 10:52 | disposition home or self-care (01) ==
LOC: ONC/OP 07:44
PROVIDERS: ATTEND Internal Medicine Hematology & Oncology
DX: D64.9 Anemia, unspecified (principal); D69.6 Thrombocytopenia, unspecified; Z88.1 Allergy status to other antibiotic agents; Z88.8 Allergy status to other drugs, medicaments and biological substances
CPT/HCPCS: 86850; 86900; 86901; 86920; J1642; P9016; 36430

== ENCOUNTER 2024-05-24 10:31 | Day surgery (SDC) | payer MEDICARE ==
[2024-05-24] MEDS ORDERED: Acetaminophen 500 MG TAB ONE (11:31)
[2024-05-24] MEDS ORDERED: diphenhydrAMINE 25 MG CAP ONE (11:31)
[2024-05-24] MEDS: diphenhydrAMINE 25 MG CAP PO SCH (11:34)
[2024-05-24] MEDS: Acetaminophen 500 MG TAB PO SCH (11:34)
[2024-05-24 14:05] VITALS: BP 157/73
[2024-05-24 14:06] VITALS: TEMP 98.1
== END 2024-05-24 14:18 | disposition home or self-care (01) ==
LOC: ONC/OP 10:31
PROVIDERS: ATTEND Internal Medicine Hematology & Oncology
DX: D46.0 Refractory anemia without ring sideroblasts, so stated (principal); D69.6 Thrombocytopenia, unspecified; Z88.1 Allergy status to other antibiotic agents; Z88.8 Allergy status to other drugs, medicaments and biological substances; C91.Z0 Other lymphoid leukemia not having achieved remission; N18.2 Chronic kidney disease, stage 2 (mild); M81.8 Other osteoporosis without current pathological fracture; E53.9 Vitamin B deficiency, unspecified
CPT/HCPCS: 36430; 80076; 86850; 86900; 86901; 86920; J1642; P9016

== ENCOUNTER 2024-06-14 11:08 | Day surgery (SDC) | payer MEDICARE ==
[2024-06-14] MEDS ORDERED: Acetaminophen 500 MG TAB ONE (12:13)
[2024-06-14] MEDS: Acetaminophen 500 MG TAB PO SCH (12:14)
[2024-06-14] MEDS ORDERED: diphenhydrAMINE 25 MG CAP ONE (12:14)
[2024-06-14] MEDS: diphenhydrAMINE 25 MG CAP PO SCH (12:15)
[2024-06-14 16:33] VITALS: BP 183/83; TEMP 98.1
== END 2024-06-14 16:36 | disposition home or self-care (01) ==
LOC: ONC/OP 11:08
PROVIDERS: ATTEND Internal Medicine Hematology & Oncology
DX: D64.9 Anemia, unspecified (principal); D69.6 Thrombocytopenia, unspecified; Z88.1 Allergy status to other antibiotic agents; Z88.8 Allergy status to other drugs, medicaments and biological substances
CPT/HCPCS: 36430; 86850; 86900; 86901; 86920; J1642; P9016

== ENCOUNTER 2024-06-28 11:08 | Day surgery (SDC) | payer MEDICARE ==
[2024-06-28] MEDS ORDERED: diphenhydrAMINE 25 MG CAP ONE (12:20)
[2024-06-28] MEDS ORDERED: Acetaminophen 500 MG TAB ONE (12:20)
[2024-06-28] MEDS: Acetaminophen 500 MG TAB PO SCH (12:22)
[2024-06-28] MEDS: diphenhydrAMINE 25 MG CAP PO SCH (12:22)
[2024-06-28 12:39] VITALS: TEMP 97.5
[2024-06-28 17:15] VITALS: BP 177/74
[2024-06-28] MEDS ORDERED: FLU (Fluad Triv) TS24-25 (65UP)/MF59C/PF 45 MCG/0.5 ML Syringe IM ONE (17:45)
== END 2024-06-28 17:15 | disposition home or self-care (01) ==
LOC: ONC/OP 11:08
PROVIDERS: ATTEND Internal Medicine Hematology & Oncology
DX: D64.9 Anemia, unspecified (principal); D69.6 Thrombocytopenia, unspecified; Z88.1 Allergy status to other antibiotic agents; Z88.8 Allergy status to other drugs, medicaments and biological substances
CPT/HCPCS: 36430; 86850; 86900; 86901; 86920; 90653; J1642; P9016

== ENCOUNTER 2024-07-12 10:15 | Day surgery (SDC) | payer MEDICARE ==
[2024-07-12] MEDS ORDERED: Acetaminophen 500 MG TAB ONE (11:30)
[2024-07-12] MEDS ORDERED: diphenhydrAMINE 25 MG CAP ONE (11:31)
[2024-07-12] MEDS: Acetaminophen 500 MG TAB PO SCH (11:33)
[2024-07-12] MEDS: diphenhydrAMINE 25 MG CAP PO SCH (11:33)
[2024-07-12 17:04] VITALS: BP 170/75; TEMP 97.9
== END 2024-07-12 17:05 | disposition home or self-care (01) ==
LOC: ONC/OP 10:15
PROVIDERS: ATTEND Internal Medicine Hematology & Oncology
DX: D64.9 Anemia, unspecified (principal); D69.6 Thrombocytopenia, unspecified; Z88.1 Allergy status to other antibiotic agents; Z88.8 Allergy status to other drugs, medicaments and biological substances
CPT/HCPCS: 36430; 86850; 86900; 86901; 86920; J1642; P9016

== ENCOUNTER 2024-07-26 10:46 | Day surgery (SDC) | payer MEDICARE ==
[2024-07-26] MEDS ORDERED: Acetaminophen 500 MG TAB ONE ×2 (11:30)
[2024-07-26] MEDS: diphenhydrAMINE 25 MG CAP PO SCH (11:32)
[2024-07-26] MEDS: Acetaminophen 500 MG TAB PO SCH (11:32)
[2024-07-26 14:51] VITALS: BP 144/65; TEMP 97.6
[2024-07-26] MEDS ORDERED: FLU (Fluad Triv) TS24-25 (65UP)/MF59C/PF 45 MCG/0.5 ML Syringe IM ONE (16:00)
== END 2024-07-26 14:40 | disposition home or self-care (01) ==
LOC: ONC/OP 10:46
PROVIDERS: ATTEND Internal Medicine Hematology & Oncology
DX: D64.9 Anemia, unspecified (principal); D69.6 Thrombocytopenia, unspecified
CPT/HCPCS: 36430; 86850; 86900; 86901; 86920; J1642; P9016

== ENCOUNTER → 2024-08-02 | Day surgery (SDC) | payer MEDICARE ==
[~2024-08-02] MED LIST changes: -diphenhydrAMINE 25 MG CAP ONE; +diphenhydrAMINE 25 MG CAP PO SCH
[2024-08-02] MEDS: Acetaminophen 500 MG TAB PO SCH (12:03)
[2024-08-02 14:43] VITALS: BP 172/76; TEMP 97.6
== END ==
LOC: ONC/OP 10:53
PROVIDERS: ATTEND Internal Medicine Hematology & Oncology
DX: D64.9 Anemia, unspecified (principal); D69.6 Thrombocytopenia, unspecified
CPT/HCPCS: 36430; 86850; 86900; 86901; 86920; J1642; P9016

== ENCOUNTER 2024-08-09 10:23 | Day surgery (SDC) | payer MEDICARE ==
[2024-08-09] MEDS ORDERED: Acetaminophen 500 MG TAB ONE (11:49)
[2024-08-09] MEDS ORDERED: diphenhydrAMINE 25 MG CAP ONE (11:49)
[2024-08-09] MEDS: diphenhydrAMINE 25 MG CAP ONE (11:51)
[2024-08-09] MEDS: Acetaminophen 500 MG TAB ONE (11:51)
[2024-08-09] MEDS ORDERED: Acetaminophen 500 MG TAB PO SCH (12:15)
[2024-08-09] MEDS ORDERED: diphenhydrAMINE 25 MG CAP PO SCH (12:15)
[2024-08-09 16:59] VITALS: BP 165/80; TEMP 97.9
== END 2024-08-09 17:05 | disposition home or self-care (01) ==
LOC: ONC/OP 10:23
PROVIDERS: ATTEND Internal Medicine Hematology & Oncology
DX: D64.9 Anemia, unspecified (principal); D69.6 Thrombocytopenia, unspecified; Z88.1 Allergy status to other antibiotic agents; Z88.8 Allergy status to other drugs, medicaments and biological substances
CPT/HCPCS: 36430; 86850; 86900; 86901; 86920; J1642; P9016

== ENCOUNTER 2024-08-16 11:04 | Day surgery (SDC) | payer MEDICARE ==
[2024-08-16] MEDS ORDERED: diphenhydrAMINE 25 MG CAP ONE (11:39)
[2024-08-16] MEDS ORDERED: Acetaminophen 500 MG TAB ONE (11:39)
[2024-08-16] MEDS: diphenhydrAMINE 25 MG CAP PO SCH (11:45)
[2024-08-16] MEDS: Acetaminophen 500 MG TAB PO SCH (11:45)
[2024-08-16 17:27] VITALS: BP 166/72; TEMP 97.7
== END 2024-08-16 17:29 | disposition home or self-care (01) ==
LOC: ONC/OP 11:04
PROVIDERS: ATTEND Internal Medicine Hematology & Oncology
DX: D64.9 Anemia, unspecified (principal); D69.6 Thrombocytopenia, unspecified
CPT/HCPCS: 36430; 86850; 86900; 86901; 86920; P9016; J1642

== ENCOUNTER 2024-08-23 10:56 | Day surgery (SDC) | payer MEDICARE ==
[2024-08-23] MEDS: Acetaminophen 500 MG TAB ONE (11:41)
[2024-08-23] MEDS ORDERED: diphenhydrAMINE 25 MG CAP PO SCH (11:45)
[2024-08-23] MEDS ORDERED: Acetaminophen 500 MG TAB PO SCH (11:45)
[2024-08-23 15:03] VITALS: BP 116/57; TEMP 97.4
== END 2024-08-23 15:12 | disposition home or self-care (01) ==
LOC: ONC/OP 10:56
PROVIDERS: ATTEND Internal Medicine Hematology & Oncology
DX: D64.9 Anemia, unspecified (principal); D69.6 Thrombocytopenia, unspecified; Z88.1 Allergy status to other antibiotic agents; Z88.8 Allergy status to other drugs, medicaments and biological substances
CPT/HCPCS: 36430; 86850; 86900; 86901; 86920; J1642; P9016

== ENCOUNTER 2024-08-30 10:05 | Day surgery (SDC) | payer MEDICARE ==
[2024-08-30] MEDS ORDERED: diphenhydrAMINE 25 MG CAP PO SCH (11:00)
[2024-08-30] MEDS ORDERED: Acetaminophen 500 MG TAB ONE (11:01)
[2024-08-30] MEDS: Acetaminophen 500 MG TAB PO SCH (11:02)
[2024-08-30 13:29] VITALS: BP 140/65; TEMP 97.5
== END 2024-08-30 13:48 | disposition home or self-care (01) ==
LOC: ONC/OP 10:05
PROVIDERS: ATTEND Internal Medicine Hematology & Oncology
DX: D64.9 Anemia, unspecified (principal); D69.6 Thrombocytopenia, unspecified
CPT/HCPCS: 36430; 86850; 86900; 86901; 86920; J1642; P9016

== ENCOUNTER → 2024-09-06 | Day surgery (SDC) | payer MEDICARE ==
[2024-09-06] MEDS: Acetaminophen 500 MG TAB PO SCH (11:32)
[2024-09-06 11:44] VITALS: TEMP 97.6
[2024-09-06 14:29] VITALS: BP 168/72
== END ==
LOC: ONC/OP 10:00
PROVIDERS: ATTEND Internal Medicine Hematology & Oncology
DX: D64.9 Anemia, unspecified (principal); D69.6 Thrombocytopenia, unspecified; Z88.8 Allergy status to other drugs, medicaments and biological substances; Z88.1 Allergy status to other antibiotic agents
CPT/HCPCS: 36430; 86850; 86900; 86901; 86920; J1642; P9016

== ENCOUNTER 2024-09-13 11:38 | Day surgery (SDC) | payer MEDICARE ==
[2024-09-13] MEDS ORDERED: diphenhydrAMINE 25 MG CAP PO SCH (12:15)
[2024-09-13] MEDS ORDERED: Acetaminophen 500 MG TAB ONE (13:00)
[2024-09-13] MEDS: Acetaminophen 500 MG TAB PO SCH (13:02)
[2024-09-13 15:56] VITALS: BP 149/71; TEMP 97.6
== END 2024-09-13 16:08 | disposition home or self-care (01) ==
LOC: ONC/OP 11:38
PROVIDERS: ATTEND Internal Medicine Hematology & Oncology
DX: D64.9 Anemia, unspecified (principal); D69.6 Thrombocytopenia, unspecified; Z88.1 Allergy status to other antibiotic agents; Z88.8 Allergy status to other drugs, medicaments and biological substances
CPT/HCPCS: 36430; 86850; 86900; 86901; 86920; J1642; P9016; 85025

== ENCOUNTER 2024-09-20 10:39 | Day surgery (SDC) | payer MEDICARE ==
[2024-09-20] MEDS ORDERED: diphenhydrAMINE 25 MG CAP PO SCH (10:45)
[2024-09-20] MEDS ORDERED: Acetaminophen 500 MG TAB ONE (11:01)
[2024-09-20] MEDS: Acetaminophen 500 MG TAB PO SCH (11:02)
[2024-09-20 14:22] VITALS: BP 156/74; TEMP 98.3
== END 2024-09-20 14:42 | disposition home or self-care (01) ==
LOC: ONC/OP 10:39
PROVIDERS: ATTEND Internal Medicine Hematology & Oncology
DX: D64.9 Anemia, unspecified (principal); D69.6 Thrombocytopenia, unspecified; Z88.1 Allergy status to other antibiotic agents; Z88.8 Allergy status to other drugs, medicaments and biological substances
CPT/HCPCS: 36430; 86850; 86900; 86901; 86920; J1642; P9016

== ENCOUNTER 2024-10-04 09:55 | Day surgery (SDC) | payer MEDICARE ==
[2024-10-04] MEDS ORDERED: diphenhydrAMINE 25 MG CAP PO SCH (10:30)
[2024-10-04] MEDS: Acetaminophen 500 MG TAB PO SCH (10:34)
[2024-10-04] MEDS ORDERED: Acetaminophen 500 MG TAB ONE (10:34)
[2024-10-04 14:28] VITALS: BP 162/66; TEMP 97.5
== END 2024-10-04 14:32 | disposition home or self-care (01) ==
LOC: ONC/OP 09:55
PROVIDERS: ATTEND Internal Medicine Hematology & Oncology
DX: D64.9 Anemia, unspecified (principal); D69.6 Thrombocytopenia, unspecified
CPT/HCPCS: 36430; 86850; 86900; 86901; 86920; J1642; P9016

== ENCOUNTER 2024-10-08 19:03 | Inpatient (IN) | payer MEDICARE ==
[2024-10-08 20:51] VITALS: BMI 22.3
[2024-10-08] MEDS ORDERED: Ondansetron PF 4 MG/2 ML Vial IVP PRN (21:30)
[2024-10-08] MEDS ORDERED: hydrALAZINE 20 MG/ML VIAL SLOW IVP PRN (21:30)
[2024-10-09] MEDS ORDERED: Cyclobenzaprine 10 MG TAB PO PRN (03:18)
[2024-10-09 04:06] LABS: #Basophils Less than 0.03 10x3/uL (0.0-0.2); %Basophils 0.5 % (0.0-1.0); %Eosinophils 2.3 % (0.0-10.0); %Monocytes 10.5 % (0.0-10.0); %Neutrophils 57.2 % (42.0-75.0); Hematocrit 20.5 % (42.0-52.0); Hemoglobin 6.6 g/dL (14.0-18.0); Mean Corpuscular HGB CONC 32.2 g/dL (32.0-36.0); Mean Corpuscular Hemoglobin 28.7 pg (27.0-31.0); Mean Corpuscular Volume 89.1 fL (78.0-98.0); Mean Platelet Volume 9.9 fL (7.4-10.4); Platelet Count 171 10x3/uL (130-400); RBC Distribution Width 15.3 % (11.5-14.5)
[2024-10-09 04:32] LABS: Anion Gap 10 mmol/L (10-20); BUN (Urea Nitrogen) 28 mg/dL (8.4-25.7); Calc. Creatinine Clearance 70 mL/min (70-130); Calcium 9.3 mg/dL (7.8-10.44); Carbon Dioxide 27 mmol/L (23-31); Chloride 109 mmol/L (98-107); Cholesterol 101 mg/dl (< 200 Desired); Estimated GFR 77; Glucose 119 mg/dL (83-110); HDL Cholesterol 34 mg/dL (>60 Neg Risk); LDL Cholesterol, Calculated 55 mg/dL; Potassium 4.2 mmol/L (3.5-5.1); Sodium 142 mmol/L (136-145); Triglycerides 61 mg/dL (Less than 150)
[2024-10-09] MEDS: Levothyroxine Sodium 100 MCG TAB PO SCH (05:44)
[2024-10-09] MEDS ORDERED: EPOETIN ALFA-EPBX (ESRD) 40,000 UNITS/ML VIAL SC SCH (06:00)
[2024-10-09] MEDS: Aspirin Chewable 81 MG TAB PO SCH (10:05)
[2024-10-09] MEDS: Aspirin 81 mg Enteric Coated Tablet PO SCH (10:51)
[2024-10-09] MEDS: FLU (Fluad Triv) TS24-25 (65UP)/MF59C/PF 45 MCG/0.5 ML Syringe IM ONE (10:52)
[2024-10-09] MEDS: Acetaminophen 325 MG TAB PO PRN (21:30)
[2024-10-09] MEDS: Atorvastatin Calcium 40 MG TAB PO SCH (21:31)
[2024-10-09] MEDS: Senokot S 8.6-50 MG TAB PO SCH (21:32)
[2024-10-09 22:04] LABS: Bilirubin Negative (Negative); Blood, Urine 2+ (Negative); Clarity Extra Turbid (Clear); Glucose, Urine (Dipstick) Normal (Negative); Ketone, Urine Negative (Negative); Leukocyte 500 Leu/uL (Negative); Nitrite 1+ (Negative); Protein, Urine (Dipstick) Greater than 600 mg/dL (Neg-Trace); RBC/HPF Greater than 50 HPF (0-3); Specific Gravity, Urine 1.024 (1.002-1.036); Squamous Epithelial None Seen HPF (0-3); Urobilinogen Normal mg/dL (Less than 2); WBC/HPF Greater than 50 HPF (0-3); pH, Urine 8.5 (5.0-9.0)
[2024-10-09 22:05] LABS: Bacteria/HPF 2+ HPF (None Seen)
[2024-10-09] MEDS: cefTRIAXone\\ROCEPHIN 1 GM in Sodium Chloride 0.9% 100 ML IVPB SCH (23:23)
[2024-10-10 04:21] LABS: #Basophils Less than 0.03 10x3/uL (0.0-0.2); %Basophils 0.1 % (0.0-1.0); %Eosinophils 0.7 % (0.0-10.0); %Lymphocytes 14.3 % (21.0-51.0); %Monocytes 10.5 % (0.0-10.0); %Neutrophils 73.7 % (42.0-75.0); Hematocrit 22.7 % (42.0-52.0); Hemoglobin 7.4 g/dL (14.0-18.0); Mean Corpuscular HGB CONC 32.6 g/dL (32.0-36.0); Mean Corpuscular Hemoglobin 29.4 pg (27.0-31.0); Mean Corpuscular Volume 90.1 fL (78.0-98.0); Mean Platelet Volume 10.3 fL (7.4-10.4); Platelet Count 166 10x3/uL (130-400); RBC Distribution Width 15.5 % (11.5-14.5); Red Blood Cell (RBC) Count 2.52 mill/uL (4.70-6.10)
[2024-10-10 04:47] LABS: Anion Gap 10 mmol/L (10-20); BUN (Urea Nitrogen) 37 mg/dL (8.4-25.7); Calc. Creatinine Clearance 61 mL/min (70-130); Calcium 9.3 mg/dL (7.8-10.44); Carbon Dioxide 26 mmol/L (23-31); Chloride 109 mmol/L (98-107); Estimated GFR 66; Glucose 132 mg/dL (83-110); Magnesium 1.7 mg/dL (1.6-2.6); Potassium 4.3 mmol/L (3.5-5.1); Sodium 141 mmol/L (136-145)
[2024-10-11] MEDS: EPOETIN ALFA-EPBX (ESRD) 40,000 UNITS/ML VIAL SC SCH (04:29)
[2024-10-11 05:15] LABS: #Basophils Less than 0.03 10x3/uL (0.0-0.2); %Basophils 0.5 % (0.0-1.0); %Eosinophils 3.9 % (0.0-10.0); %Lymphocytes 30.8 % (21.0-51.0); %Monocytes 7.5 % (0.0-10.0); %Neutrophils 56.3 % (42.0-75.0); Hematocrit 21.9 % (42.0-52.0); Mean Corpuscular Hemoglobin 29.2 pg (27.0-31.0); Mean Corpuscular Volume 91.3 fL (78.0-98.0); Mean Platelet Volume 10.6 fL (7.4-10.4); Platelet Count 142 10x3/uL (130-400); RBC Distribution Width 15.5 % (11.5-14.5)
[2024-10-11 05:28] LABS: Anion Gap 11 mmol/L (10-20); BUN (Urea Nitrogen) 41 mg/dL (8.4-25.7); Calc. Creatinine Clearance 60 mL/min (70-130); Calcium 9.1 mg/dL (7.8-10.44); Carbon Dioxide 26 mmol/L (23-31); Chloride 107 mmol/L (98-107); Estimated GFR 65; Glucose 111 mg/dL (83-110); Potassium 4.6 mmol/L (3.5-5.1); Sodium 139 mmol/L (136-145)
[2024-10-12 05:25] LABS: #Basophils Less than 0.03 10x3/uL (0.0-0.2); %Basophils 0.5 % (0.0-1.0); %Eosinophils 4.5 % (0.0-10.0); %Lymphocytes 28.4 % (21.0-51.0); %Monocytes 6.8 % (0.0-10.0); Hematocrit 20.5 % (42.0-52.0); Hemoglobin 6.6 g/dL (14.0-18.0); Mean Corpuscular HGB CONC 32.2 g/dL (32.0-36.0); Mean Corpuscular Hemoglobin 29.9 pg (27.0-31.0); Mean Corpuscular Volume 92.8 fL (78.0-98.0); Mean Platelet Volume 10.3 fL (7.4-10.4); Platelet Count 144 10x3/uL (130-400); RBC Distribution Width 15.5 % (11.5-14.5); Red Blood Cell (RBC) Count 2.21 mill/uL (4.70-6.10)
[2024-10-12 05:54] LABS: Anion Gap 9 mmol/L (10-20); BUN (Urea Nitrogen) 36 mg/dL (8.4-25.7); Calc. Creatinine Clearance 64 mL/min (70-130); Calcium 8.9 mg/dL (7.8-10.44); Carbon Dioxide 27 mmol/L (23-31); Chloride 110 mmol/L (98-107); Estimated GFR 70; Glucose 111 mg/dL (83-110); Potassium 4.4 mmol/L (3.5-5.1); Sodium 142 mmol/L (136-145)
[2024-10-13 05:45] LABS: #Basophils Less than 0.03 10x3/uL (0.0-0.2); %Basophils 0.3 % (0.0-1.0); %Eosinophils 4.2 % (0.0-10.0); %Lymphocytes 34.4 % (21.0-51.0); %Monocytes 6.9 % (0.0-10.0); %Neutrophils 52.4 % (42.0-75.0); Hematocrit 21.6 % (42.0-52.0); Mean Corpuscular HGB CONC 32.4 g/dL (32.0-36.0); Mean Corpuscular Hemoglobin 29.9 pg (27.0-31.0); Mean Corpuscular Volume 92.3 fL (78.0-98.0); Mean Platelet Volume 10.1 fL (7.4-10.4); Platelet Count 158 10x3/uL (130-400); RBC Distribution Width 15.4 % (11.5-14.5); Red Blood Cell (RBC) Count 2.34 mill/uL (4.70-6.10)
[2024-10-13 06:02] LABS: Chloride 110 mmol/L (98-107); Potassium 4.2 mmol/L (3.5-5.1); Sodium 141 mmol/L (136-145)
[2024-10-13 06:03] LABS: Glucose 102 mg/dL (83-110)
[2024-10-13 06:05] LABS: Anion Gap 9 mmol/L (10-20); Carbon Dioxide 26 mmol/L (23-31)
[2024-10-13 06:07] LABS: BUN (Urea Nitrogen) 36 mg/dL (8.4-25.7); Calc. Creatinine Clearance 81 mL/min (70-130); Estimated GFR 88
[2024-10-13 18:34] VITALS: BP 148/78; TEMP 98.2
== END 2024-10-13 19:30 | DRG 811 ==
LOC: 2SE 20:48 → OBSVTOIN 10-10 11:23 → MSONC 10-11 17:16
PROVIDERS: ADMIT Student in an Organized Health Care Education/Training Program; ATTEND Internal Medicine
PROC: 30233N1 Transfusion of Nonautologous Red Blood Cells into Peripheral Vein, Percutaneous Approach (ICD-10-PCS; principal; 2024-10-12)
DX: D64.9 Anemia, unspecified (principal); G93.41 Metabolic encephalopathy; T83.511A Infection and inflammatory reaction due to indwelling urethral catheter, initial encounter; C91.Z0 Other lymphoid leukemia not having achieved remission; I47.10 Supraventricular tachycardia, unspecified; R33.9 Retention of urine, unspecified; E03.9 Hypothyroidism, unspecified; I10 Essential (primary) hypertension; I48.91 Unspecified atrial fibrillation; N40.1 Benign prostatic hyperplasia with lower urinary tract symptoms; Z88.1 Allergy status to other antibiotic agents; Z88.8 Allergy status to other drugs, medicaments and biological substances; Z98.890 Other specified postprocedural states; Z90.49 Acquired absence of other specified parts of digestive tract; B96.4 Proteus (mirabilis) (morganii) as the cause of diseases classified elsewhere
CPT/HCPCS: 36415; 36430; 70551; 80048; 80061; 81001; 83735; 85025; 86850; 86900; 86901; 87077; 87086; 87186; 93306; 96374; G0378; J0696; P9016; P9040; Q5105

== ENCOUNTER 2025-02-09 13:25 | Inpatient (IN) | payer MEDICARE ==
[2025-02-09 14:11] LABS: #Basophils Less than 0.03 10x3/uL (0.0-0.2); #Eosinophils 0.04 10x3/uL (0.0-0.7); #Monocytes 0.16 10x3/uL (0.11-0.59); #Neutrophils 1.46 10x3/uL (1.40-6.50); %Basophils 0.4 % (0.0-1.0); %Eosinophils 1.4 % (0.0-10.0); %Lymphocytes 39.8 % (21.0-51.0); %Monocytes 5.7 % (0.0-10.0); %Neutrophils 52.3 % (42.0-75.0); Hemoglobin 6.6 g/dL (14.0-18.0); Mean Corpuscular Hemoglobin 30.6 pg (27.0-31.0); Mean Corpuscular Volume 92.6 fL (78.0-98.0); Mean Platelet Volume 10.7 fL (7.4-10.4); Platelet Count 137 10x3/uL (130-400); Red Blood Cell (RBC) Count 2.16 mill/uL (4.70-6.10); White Blood Cell (WBC) Count 2.79 10x3/uL (4.8-10.8)
[2025-02-09 14:22] LABS: ALT (SGPT) 226 U/L (Less than 45); AST (SGOT) 104 U/L (11-34); Albumin 3.8 g/dL (3.1-4.5); Alkaline Phosphatase 81 U/L (40-110); Anion Gap 13 mmol/L (10-20); BUN (Urea Nitrogen) 44 mg/dL (8.4-25.7); Bilirubin, Total 0.8 mg/dL (0.3-1.2); Calc. Creatinine Clearance 0 mL/min (70-130); Calcium 9.8 mg/dL (7.8-10.44); Carbon Dioxide 24 mmol/L (23-31); Chloride 111 mmol/L (98-107); Estimated GFR 66; Globulin 2.5 g/dL (2.4-3.5); Glucose 110 mg/dL (83-110); Lipase 15 U/L (8-78); Magnesium 1.8 mg/dL (1.6-2.6); Potassium 5.1 mmol/L (3.5-5.1); Protein, Total 6.3 g/dL (5.8-8.1); Sodium 143 mmol/L (136-145)
[2025-02-09 14:26] LABS: Troponin I 0.103 ng/mL (< 0.028)
[2025-02-09 15:05] LABS: Bacteria/HPF None Seen HPF (None Seen); Bilirubin Negative (Negative); Blood, Urine 1+ (Negative); CAUTI Indications for Culture Dysuria,urgency,freq; Clarity Clear (Clear); Glucose, Urine (Dipstick) Normal (Negative); Ketone, Urine Negative (Negative); Leukocyte Negative Leu/uL (Negative); Nitrite Negative (Negative); Protein, Urine (Dipstick) Negative (Neg-Trace); Specific Gravity, Urine 1.017 (1.002-1.036); Squamous Epithelial 0-3 HPF (0-3); Urobilinogen Normal mg/dL (Less than 2); pH, Urine 5.5 (5.0-9.0)
[2025-02-09 15:21] LABS: Urine Culture Reflex Yes Yes
[2025-02-09] MEDS ORDERED: Senokot S 8.6-50 MG TAB PO PRN (15:37)
[2025-02-09] MEDS ORDERED: Acetaminophen 325 MG TAB PO PRN (15:37)
[2025-02-09] MEDS ORDERED: Calcium Carbonate 500 MG ChewTAB PO PRN (15:37)
[2025-02-09] MEDS ORDERED: Ondansetron ODT 4 MG TAB PO PRN (15:37)
[2025-02-09] MEDS: Amlodipine 5 MG TAB PO SCH (17:03)
[2025-02-09 17:56] VITALS: BMI 21.9
[2025-02-09 18:29] LABS: Troponin I 0.102 ng/mL (< 0.028)
[2025-02-09] MEDS: cefTRIAXone\\ROCEPHIN 1 GM in Sodium Chloride 0.9% 100 ML IVPB SCH (18:40)
[2025-02-09] MEDS: Furosemide 20 MG (2 mL) VIAL SLOW IVP SCH (18:40)
[2025-02-09] MEDS: hydrALAZINE 20 MG/ML VIAL SLOW IVP PRN (20:16)
[2025-02-09 21:09] LABS: Hematocrit 23.1 % (42.0-52.0); Hemoglobin 7.6 g/dL (14.0-18.0); Platelet Count 143 10x3/uL (130-400)
[2025-02-09 21:27] LABS: Troponin I 0.115 ng/mL (< 0.028)
[2025-02-09 22:08] LABS: Thyroid Stimulating Hormone 1.9118 uIU/mL (0.35-4.94)
[2025-02-10 04:59] LABS: #Basophils Less than 0.03 10x3/uL (0.0-0.2); #Eosinophils 0.04 10x3/uL (0.0-0.7); #Monocytes 0.15 10x3/uL (0.11-0.59); #Neutrophils 1.41 10x3/uL (1.40-6.50); %Eosinophils 1.3 % (0.0-10.0); %Lymphocytes 46.7 % (21.0-51.0); %Monocytes 4.9 % (0.0-10.0); %Neutrophils 46.4 % (42.0-75.0); Hematocrit 21.7 % (42.0-52.0); Hemoglobin 7.2 g/dL (14.0-18.0); Mean Corpuscular HGB CONC 33.2 g/dL (32.0-36.0); Mean Corpuscular Hemoglobin 29.6 pg (27.0-31.0); Mean Corpuscular Volume 89.3 fL (78.0-98.0); Mean Platelet Volume 9.8 fL (7.4-10.4); Platelet Count 134 10x3/uL (130-400); RBC Distribution Width 17.2 % (11.5-14.5); Red Blood Cell (RBC) Count 2.43 mill/uL (4.70-6.10); White Blood Cell (WBC) Count 3.04 10x3/uL (4.8-10.8)
[2025-02-10 05:08] LABS: Anion Gap 11 mmol/L (10-20); BUN (Urea Nitrogen) 36 mg/dL (8.4-25.7); Calc. Creatinine Clearance 71 mL/min (70-130); Calcium 9.7 mg/dL (7.8-10.44); Carbon Dioxide 28 mmol/L (23-31); Chloride 107 mmol/L (98-107); Estimated GFR 80; Glucose 98 mg/dL (83-110); Potassium 4.2 mmol/L (3.5-5.1); Sodium 142 mmol/L (136-145)
[2025-02-10] MEDS: Levothyroxine Sodium 100 MCG TAB PO SCH (05:47)
[2025-02-10] MEDS: Benzocaine/Menthol 1 LOZ LOZ PO PRN (06:42)
[2025-02-11 04:33] LABS: #Basophils Less than 0.03 10x3/uL (0.0-0.2); #Eosinophils 0.06 10x3/uL (0.0-0.7); #Monocytes 0.16 10x3/uL (0.11-0.59); #Neutrophils 1.13 10x3/uL (1.40-6.50); %Eosinophils 2.3 % (0.0-10.0); %Lymphocytes 46.9 % (21.0-51.0); %Monocytes 6.3 % (0.0-10.0); %Neutrophils 44.1 % (42.0-75.0); Hemoglobin 7.2 g/dL (14.0-18.0); Mean Corpuscular HGB CONC 32.7 g/dL (32.0-36.0); Mean Corpuscular Hemoglobin 29.6 pg (27.0-31.0); Mean Corpuscular Volume 90.5 fL (78.0-98.0); Mean Platelet Volume 10.6 fL (7.4-10.4); Platelet Count 129 10x3/uL (130-400); RBC Distribution Width 17.1 % (11.5-14.5); Red Blood Cell (RBC) Count 2.43 mill/uL (4.70-6.10); White Blood Cell (WBC) Count 2.56 10x3/uL (4.8-10.8)
[2025-02-11 04:54] LABS: Anion Gap 9 mmol/L (10-20); BUN (Urea Nitrogen) 32 mg/dL (8.4-25.7); Calc. Creatinine Clearance 69 mL/min (70-130); Calcium 9.7 mg/dL (7.8-10.44); Carbon Dioxide 29 mmol/L (23-31); Chloride 110 mmol/L (98-107); Estimated GFR 78; Glucose 99 mg/dL (83-110); Potassium 4.3 mmol/L (3.5-5.1); Sodium 144 mmol/L (136-145)
[2025-02-11 16:28] VITALS: BP 174/84; TEMP 97.2
[2025-02-12 06:18] LABS: Bilirubin Negative (Negative); Blood, Urine Negative (Negative); Clarity Clear (Clear); Glucose, Urine (Dipstick) Normal (Negative); Ketone, Urine Negative (Negative); Leukocyte Negative Leu/uL (Negative); Nitrite Negative (Negative); Protein, Urine (Dipstick) Negative (Neg-Trace); Specific Gravity, Urine 1.018 (1.002-1.036); Urobilinogen Normal mg/dL (Less than 2)
[2025-02-12 06:26] LABS: Bacteria/HPF None Seen HPF (None Seen); RBC/HPF 0-3 HPF (0-3); Squamous Epithelial 0-3 HPF (0-3); WBC/HPF 0-3 HPF (0-3)
== END 2025-02-11 16:49 | disposition left against medical advice (07) | DRG 280 ==
LOC: ERS 13:25 → MSONC 15:34
PROVIDERS: ADMIT Student in an Organized Health Care Education/Training Program; ATTEND Family Medicine
PROC: 30243N1 Transfusion of Nonautologous Red Blood Cells into Central Vein, Percutaneous Approach (ICD-10-PCS; principal; 2025-02-09)
DX: I11.0 Hypertensive heart disease with heart failure (principal); G93.41 Metabolic encephalopathy; I21.A1 Myocardial infarction type 2; I50.33 Acute on chronic diastolic (congestive) heart failure; J69.0 Pneumonitis due to inhalation of food and vomit; C95.91 Leukemia, unspecified, in remission; I16.1 Hypertensive emergency; N39.0 Urinary tract infection, site not specified; I05.0 Rheumatic mitral stenosis; D46.9 Myelodysplastic syndrome, unspecified; I48.91 Unspecified atrial fibrillation; E89.0 Postprocedural hypothyroidism; D63.0 Anemia in neoplastic disease; N40.0 Benign prostatic hyperplasia without lower urinary tract symptoms; D69.6 Thrombocytopenia, unspecified; I25.10 Atherosclerotic heart disease of native coronary artery without angina pectoris; Z98.890 Other specified postprocedural states; Z88.1 Allergy status to other antibiotic agents; Z88.8 Allergy status to other drugs, medicaments and biological substances; Z98.2 Presence of cerebrospinal fluid drainage device; Z79.899 Other long term (current) drug therapy
CPT/HCPCS: 36415; 36416; 36430; 70450; 71045; 80048; 80053; 81001; 82607; 83690; 83735; 83880; 84443; 84484; 85025; 86850; 86900; 86901; 87086; 93005; 93010; 94760; J0360; J0696; J1642; J1940; P9016